=== PATIENT | female | born 1960 | race Caucasian/White ===

== ENCOUNTER → 2020-12-07 | Outpatient (CLI) | payer OTHER ==
[~2020-12-07] MED LIST: LIDOCAINE 1% Multi-Dose 20 ML VIAL. ONE; LIDOCAINE 2%/EPI 1:100,000 20 ML VIAL. ONE
--- NOTE | 2020-12-07 13:37 | RAD ---
EXAM: 1. STEREOTACTICALLY GUIDED VACUUM ASSISTED LEFT BREAST CORE BIOPSY. 2. POSTCLIP DIGITAL LEFT MAMMOGRAPHY. 3. SPECIMEN RADIOGRAPH. HISTORY: Left breast microcalcifications. Stereotactic biopsy is requested. FINDINGS: The procedure and its risks and benefits were discussed with the patient. Risks discussed i ncluded, but were not limited to, pain, infection, bleeding and need for repeat biopsy. The patient p rovided verbal and written consent. A timeout procedure was performed. The target calcifications superolaterally were localized stereotactically. The overlying skin was joshua rilely prepped and infiltrated with 1% lidocaine for local anesthesia. The deeper soft tissues were i nfiltrated with lidocaine with epinephrine for anesthesia and hemostasis. A 9 gauge vacuum-assisted c ore biopsy system was advanced to the target under stereotactic guidance. 6 core biopsy specimens wer e obtained. A specimen radiograph demonstrates the target calcifications within the specimen. A postb iopsy clip was placed and postoperative images were obtained. Instrumentation was withdrawn and press ure held and hemostasis. A sterile dressing was placed. There were no immediate complications. Postclip digital left mammography was obtained in CC and MLO projections and interpreted on a [employer] ed workstation. The postbiopsy clip corresponds with the target lesion. There are mild postprocedural changes. IMPRESSION: 1. Successful stereotactically guided vacuum assisted core biopsy of left breast microcalcifications with clip placement. 2. The target calcifications are included on the specimen radiograph. 3. Postclip mammography demonstrates the postbiopsy clip in correspondence with the target lesion. Electronically signed by: Guilherme Stringer MD (12/07/2020 1:34 PM) [id number]
--- NOTE | 2020-12-11 17:06 | PATHOLOGY ---
[facility] Accession Number: [id number] . 01 Material submitted: . breast - LT BREAST CALCIFICATION. Modifiers: left . 02 Diagnosis: Breast tissue, left breast biopsies: - Ancient fibroadenoma, with associated calcifications. - Small focus of sclerosing adenosis with apocrine metaplasia. (JPM:pit; 12/11/2020) QTP 12/11/2020 1358 Local . 02 Comment: Sections of the left breast biopsy reveal an ancient fibroadenoma with associated calcifications. This measures up to approximately 4 mm in greatest dimension on the glass slide. There is no atypia or evidence of malignancy. (JPM:pit; 12/11/2020) . 02 Electronically signed: . Charlie Mon MD, Pathologist NPI- [id number] . 01 Gross description: . Received in formalin labeled "Akila Pinedo, left breast calcifications" is a 2.5 x 2.4 x 0.3 cm aggregate of yellow-reynolds lobulated soft tissue fragments. The specimen is entirely submitted in cassettes A1-A2. The specimen is removed from the patient at 1310 and placed in formalin at 1317 on 12/07/2020. The specimen is removed from formalin at 2009 on 12/09/2020. ([facility] [place]; 12/08/2020) [facility] 12/08/2020 0918 Local . 02 Pathologist provided ICD-10: D24.2, N60.22, N60.82 . 02 CPT . 661979 Specimen Comment: A courtesy copy of this report has been sent to [phone], [phone] Specimen Comment: [id number] Specimen Comment: Report sent to DR. TRIMBLE / DR PACE Performed at: 01 [facility] [address], [place], [place] [id number] MD Jim Garcia MD Phone: [phone] Performed at: 02 [facility] [address] [place], [place] [id number] MD Charlie Mon MD Phone: [phone]
== END | disposition home or self-care (01) ==
LOC: MAMMO 12:14
PROVIDERS: ATTEND Preventive Medicine Occupational Medicine
DX: R92.1 Mammographic calcification found on diagnostic imaging of breast (principal); R92.0 Mammographic microcalcification found on diagnostic imaging of breast
CPT/HCPCS: 19081; 77065; 88305